=== PATIENT | female | born 1960 | race Caucasian/White ===

== ENCOUNTER → 2018-07-23 07:50 | Outpatient (CLI) | payer OTHER, MEDICAID, SELFPAY | PROVIDERS: Family Provider Nurse Practitioner; PCP Nurse Practitioner; Visit Provider Nurse Practitioner | DX: R60.0 Localized edema (principal) ==

== ENCOUNTER → 2018-07-24 07:39 | Outpatient (CLI) | payer OTHER, MEDICAID, SELFPAY ==
--- NOTE | 2018-07-24 | DI.MRI.S_ITS ---
PROCEDURE: MR LOWER LEG LT WO/W CON INDICATIONS: LEFT LEG WEAKNESS/EDEMA TECHNIQUE: Noncontrast coronal T1 spin echo and STIR, sagittal T1 spin echo with fat saturation and STIR, axial T1 spin echo and T2 fast spin echo with fat saturation. After the administration of contrast, axial/sagittal/coronal T1 spin echo with fat saturation through the left lower leg. COMPARISON: [facility], MR, MR KNEE LT WO/W CON, 07/24/2018, 8:14. [facility] [place], CR, XR KNEE ARTHRITIC SERIES LT, 03/28/2018, 13:51. [facility], CR, XR KNEE 3 VIEWS LEFT, 12/10/2016, 17:35. FINDINGS: Image quality: Diagnostic. Bones: There is no acute fracture or dislocation identified involving the osseous structures of the left lower leg. However, there is heterogeneous signal identified (demonstrating mild increased signal intensity on the fluid sensitive sequences and intermediate to decreased signal intensity on the T1 images and of mild patchy postcontrast enhancement) is identified involving the imaged portions of the distal femoral diametaphysis, proximal tibial diametaphysis, and proximal fibular diametaphysis. An identical pattern is identified involving the imaged portions of the right lower leg. No additional areas of abnormal marrow signal are seen involving the distal margins of the left tibia or fibula or the included portions of the ankle bones. No significant tibiotalar joint effusion is present. There is a small knee joint effusion. Soft tissues: There is mild subcutaneous edema about the left lower leg which is predominantly seen anteriorly. No drainable or loculated fluid collections are present. There are no soft tissue masses. There is no significant or asymmetric atrophy identified involving the muscles of the left lower leg. There is heterogeneity identified involving the peroneus brevis and peroneus longus tendons near the level of the ankle, which is not well evaluated, but suspicious for mild tendinopathy. Please note that the ankle ligaments are not adequately evaluated on this exam. As mentioned on the MRI of the knee, there is mild distal patellar tendinopathy and a small knee joint effusion. Degenerative changes of the knee are again noted. The Achilles tendon appears to be intact and otherwise unremarkable. IMPRESSION: 1. Heterogeneous marrow signal involving the distal left femur, proximal tibia, and proximal left fibula is symmetric when compared to the contralateral right lower extremity and most suggestive of red marrow reconversion. Diffuse marrow metastases are felt to be unlikely. If the patient has a history of cancer, a nuclear medicine bone scan may be helpful for better evaluation. Otherwise, followup MR imaging of the left lower leg and 6-12 months may be helpful to assess for interval change. 2. Mild subcutaneous edema about the left lower leg without a focal fluid collection. Some of this edema is positioned anterior to the tibia. Please correlate clinically to exclude the possibility of dunn splints. 3. No soft tissue masses. 4. Possible mild peroneus longus and peroneus brevis tendinopathy. Dictated by: Bear Douglas M.D. on 07/24/2018 at 9:11 Approved by: Bear Douglas M.D. on 07/24/2018 at 9:20
--- NOTE | 2018-07-24 | DI.MRI.S_ITS ---
PROCEDURE: MR KNEE LT WO/W CON INDICATIONS: LEFT LEG WEAKNESS/EDEMA TECHNIQUE: Noncontrast sagittal PD fast spin echo and T2 fast spin echo with fat saturation, sagittal 3-D FLASH with fat saturation; coronal T1 spin echo and PD fast spin echo with fat saturation, and axial T1 spin echo and PD fast spin echo with fat saturation through the knee. Post-contrast axial, coronal, and sagittal T1 spin echo with fat saturation through the knee. COMPARISON: [facility], MR, MR LOWER LEG LT WO/W CON, 07/24/2018, 8:40. [facility] [place], CR, XR KNEE ARTHRITIC SERIES LT, 03/28/2018, 13:51. [facility], CR, XR KNEE 3 VIEWS LEFT, 12/10/2016, 17:35. FINDINGS: Image quality: Diagnostic. Bones: There is no acute fracture or dislocation identified involving the osseous structures of the right knee. No definable bone lesions are identified. Heterogeneous marrow signal with areas of increased signal on the fluid sensitive sequences and intermediate to decreased signal intensity on the T1 images is identified involving the distal femoral diametaphysis comment proximal tibial diametaphysis, and proximal fibular diametaphysis. No periosteal elevation is identified. These areas of heterogeneous marrow signal correlate with subtle areas of enhancement on the postcontrast images. There are moderate degenerative changes identified within all 3 compartments of the knee, which are most pronounced within the lateral tibiofemoral compartment with extensive chondromalacia and developing marginal osteophytes. Reactive marrow changes may be present involving the lateral tibial plateau. Mild irregularity of the head articular cartilage within the other 2 compartments of the knee are present. There likely are full thickness defects of the hyaline articular cartilage within the patellofemoral compartment. There is a small knee joint effusion. There may be intra-articular joint bodies. Soft tissues: Mild subcutaneous edema is present about the knee. No drainable or loculated fluid collections are evident. No soft tissue masses or suspicious soft tissue enhancement is appreciated. There is a complex tear identified involving the lateral meniscus which is not well characterized on this examination, but demonstrates fraying along the free edge of the body of the meniscus and degenerative signal along the midsubstance of the anterior horn and body. There may be a horizontal tear through the anterior horn and body of the lateral meniscus. The medial meniscus appears to be intact and is otherwise unremarkable. The anterior and posterior cruciate ligaments are intact. The medial and lateral collateral ligaments appear intact. The distal semimembranosus tendon appears to be within normal limits, but is not well seen. The distal iliotibial band, distal biceps femoris, and the proximal popliteal tendon are within normal limits. The distal quadriceps tendon and the patellar tendons are noted to be intact. There is increased signal and thickening identified involving the distal aspect of the patellar tendon without significant tearing evident. IMPRESSION: 1. Heterogeneous marrow signal and corresponding enhancement involving the distal femur, proximal tibia, and proximal fibula most likely represents red marrow reconversion. No definable mass is identified. The possibility of heterogeneous diffuse marrow metastases is felt to be unlikely. If the patient has a history of cancer, a bone scan may be helpful for better evaluation. Otherwise, followup MR imaging in 6-12 months would be of value to assess for interval change. 2. Moderate degenerative changes of the knee are most pronounced within the lateral compartment. 3. Mild complex tearing of the lateral meniscus. No displaced fragments. 4. Small knee joint effusion. 5. Mild distall patellar tendinopathy. 6. Mild subcutaneous edema about the knee. No drainable fluid collections or soft tissue masses. Dictated by: Bear Douglas M.D. on 07/24/2018 at 8:42 Approved by: Bear Douglas M.D. on 07/24/2018 at 9:10
== END ==
PROVIDERS: Family Provider Nurse Practitioner; PCP Nurse Practitioner; Visit Provider Nurse Practitioner
DX: S83.272A Complex tear of lateral meniscus, current injury, left knee, initial encounter (principal); M17.12 Unilateral primary osteoarthritis, left knee; R60.0 Localized edema; M25.462 Effusion, left knee
CPT/HCPCS: 73720; 73723

== ENCOUNTER 2022-03-29 08:42 | Emergency (ER) | payer OTHER, MEDICAID, SELFPAY ==
[2022-03-29] VITALS (12 sets, daily range): BP systolic 134–180; BP diastolic 78–87; PULSE 80–118; RESP 18–32; TEMP 36.9–37; O2SAT 90–98; BMI 29.7
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
[2022-03-29 09:50] LABS: Add Manual Diff / Slide Review NO; Basophils Absolute Auto 0 /uL (0-100); Basophils Percent Auto 0.2 % (0-2); Eosinophils Absolute Auto 0 /uL (0-450); Eosinophils Percent Auto 0.2 % (2-4); Hemoglobin 15.6 g/dL (12.0-16.0); Lymphocytes Absolute Auto 1100 /uL (1100-4500); Lymphocytes Percent Auto 10.7 % (25-40); Mean Corpuscular HGB Conc 33.1 % (30-36); Mean Corpuscular Hemoglobin 31.7 PG (26-34); Mean Corpuscular Volume 95.8 fL (80-100); Monocytes Absolute Auto 500 /uL (0-900); Monocytes Percent Auto 4.7 % (3-14); Neutrophils Absolute Auto 8700 /uL (1500-7000); Neutrophils Percent Auto 84.2 % (50-75); Platelet Count 229 X10^3/uL (150-400); Red Blood Cell Count 4.91 X10^6/uL (4.0-5.2); Red Cell Distribution Width 15.2 % (11.6-14.8); White Blood Cell Count 10.3 X10^3/uL (4.5-11.0)
[2022-03-29 10:03] LABS: Alanine Aminotransferase 39 IU/L (<35); Albumin 4.5 g/dL (3.5-5.0); Albumin Globulin Ratio 1.3 (1.0-2.8); Alkaline Phosphatase 102 U/L (38-126); Aspartate Aminotransferase 39 IU/L (14-36); BUN Creatinine Ratio 12.8 (6-22); Bilirubin Total 0.4 mg/dL (0.2-1.3); Blood Urea Nitrogen 11 mg/dL (7-17); Calcium 9.1 mg/dL (8.4-10.2); Carbon Dioxide 23 mmol/L (22-32); Chloride 110 mmol/L (98-107); Estimated Glomerular Filt Rate > 60 mL/min (>60); Ethanol (ETOH) 143 mg/dL; Globulin 3.5 g/dL (1.7-4.1); Glucose 111 mg/dL (70-100); HEMOLYSIS 17 (0-50); Potassium 4.1 mmol/L (3.4-5.1); Sodium 147 mmol/L (137-145)
[2022-03-29] MEDS: KETOROLAC 30 MG/ML VIAL IM (10:34)
[2022-03-29 10:37] LABS: Appearance Urine UA CLEAR; Bilirubin Urine UA NEGATIVE (NEGATIVE); Color Urine UA YELLOW; Glucose Urine UA TRACE g/dL (Negative); Ketones Urine UA TRACE (NEGATIVE); Leukocyte Esterase Urine UA NEGATIVE (NEGATIVE); Nitrite Urine UA NEGATIVE (Negative); Occult Blood Urine UA TRACE-LYSED (Negative); Protein Urine UA TRACE (Negative); Specific Gravity Urine UA 1.025 (1.000-1.035); Urobilinogen Urine UA 0.2 E.U./dL (0.2)
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
[2022-03-29 10:42] LABS: UR Morphine/Opiate cutoff 300 Negative (Negative); Ur Creatinine Normal (Normal); Ur Specific Gravity Normal (Normal); Urine Amphetamines Negative (Negative); Urine Barbiturates Negative (Negative); Urine Benzodiazepines Negative (Negative); Urine Cocaine Negative (Negative); Urine MDMA Negative (Negative); Urine Methadone Negative (Negative); Urine Methamphetamines Negative (Negative); Urine Oxycodone Negative (Negative); Urine Phencyclidine Negative (Negative); Urine Tetrahydrocannabinol Negative (Negative); Urine Tricyclic Antidepressant Negative (Negative); Urine pH Normal (Normal)
[2022-03-29 10:46] LABS: Amorphous Sediment Urine 2+; Bacteria Urine None Seen; Culture Indicated Urine Cult Not Indicated; Granular Casts Urine 0-1/LPF; Hyaline Casts Urine 0-1/LPF; Mucus Urine 1+ (Negative); RBC Urine None Seen (0-5/HPF); Squamous Epithelial Cell Urine 1-5 /HPF (0-5/HPF); WBC Urine None Seen (0-5/HPF)
--- NOTE | 2022-03-29 12:04 | PC.NURSE ---
pt is wheezing and requesting Albuterol treatment. pt takes Albuterol as needed.
[2022-03-29 12:06] LABS: Urine N gonorrhoeae NOT DETECTED
[2022-03-29 12:08] LABS: Urine Chlamydia NOT DETECTED
[2022-03-29] MEDS: ALBUTEROL/IPRATROPIUM 3 ML AMPUL INH (12:19)
[2022-03-29] MEDS: ALBUTEROL HFA PREPACK 1 BOX MISC (12:19)
[2022-03-29] MEDS: ACETAMINOPHEN 325 MG TABLET 975 MG PO (12:26)
[2022-03-29] MEDS: DULOXETINE 30 MG CAPSULE 90 MG PO (12:32)
[2022-03-29] MEDS: QUETIAPINE 25 MG TABLET 100 MG PO (12:32)
--- NOTE | 2022-03-29 13:35 | PC.NURSE ---
Officer Shay here to speak to pt.
--- NOTE | 2022-03-29 14:20 | PC.NURSE ---
sergeant mitzi armendariz spoke with patient. he states he is going to do a full interview with patient tomorrow. Case # [id number]. given card to reach him if need be. dispatch number [phone]. desk number [phone]. fax number [phone]
[2022-03-29 19:30] LABS: Pregnancy Test Urine Negative (Negative)
--- NOTE | 2022-03-29 20:25 | PC.NURSE ---
XOCHILTE exam performed by this PEANUT SEPARATOR. All evidence collected, labs sent, physician advised. Pt tolerated procedure well.
[2022-03-29 20:59] LABS: HIV 1 & 2 Ab/Ag 4th Gen Combo NEGATIVE (NEGATIVE)
== END 2022-03-29 20:28 | disposition home or self-care (01) ==
PROVIDERS: Emergency Medicine; Emergency Provider Emergency Medicine; Family Provider Nurse Practitioner; PCP Nurse Practitioner Family
DX: T74.21XA Adult sexual abuse, confirmed, initial encounter (principal); S00.83XA Contusion of other part of head, initial encounter; R00.0 Tachycardia, unspecified
CPT/HCPCS: 36415; 80053; 80305; 80320; 81001; 81025; 85025; 87070; 87147; 87186; 87205; 87210; 87389; 87491; 87591; 96372; 99284; J1885

== ENCOUNTER → 2022-11-08 09:40 | Outpatient (CLI) | payer OTHER, MEDICAID, SELFPAY | PROVIDERS: Family Provider Nurse Practitioner; PCP Nurse Practitioner Family; Referring Provider Nurse Practitioner Family; Visit Provider Nurse Practitioner Family | DX: M54.12 Radiculopathy, cervical region (principal) | CPT/HCPCS: 95886; 95912 ==

== ENCOUNTER → 2023-01-01 18:09 | Outpatient (CLI) | payer OTHER, MEDICAID, SELFPAY ==
--- NOTE | 2023-01-01 | DI.MRI.S_ITS ---
PROCEDURE: MR LOWER LEG LT WO/W CON INDICATIONS: Disease of blood and blood forming organs TECHNIQUE: Noncontrast coronal T1 spin echo and STIR, sagittal T1 spin echo with fat saturation and STIR, axial T1 spin echo and T2 fast spin echo with fat saturation. After the administration of contrast, axial/sagittal/coronal T1 spin echo with fat saturation through the left lower leg. COMPARISON: [facility], MR, MR LOWER LEG LT WO/W CON, 07/24/2018, 8:40. FINDINGS: Image quality: Excellent. Bones: Compared to previous study, again noted are ill-defined area of mildly T2 hyperintense marrow signal within medullary space of included distal femur, proximal and distal tibial shaft without associated cortical erosion or abnormal periosteal reaction. Similar changes also noted in visualized portion of right distal femur and tibial shaft. No abnormal intraosseous enhancement. No fracture or dislocation is seen. Osteoarthritic changes are noted in left knee and ankle joints. Soft tissues: No soft tissue masses are visualized. The scanned muscles demonstrate normal overall bulk and internal signal. Subcutaneous tissues appear normal as well. No abnormal soft tissue enhancement. IMPRESSION: 1. Stable and benign-appearing T2 hyperintense marrow signal within medullary space of included bilateral lower extremities and show no area of abnormal enhancement most consistent with hematopoietic marrow reconversion. Given its stability over the course of last 4 years, infiltrative marrow process is highly unlikely. 2. No enhancing soft tissue mass. No lower leg muscle or tendon signal abnormalities. Dictated by: Nabil Warner M.D. on 01/02/2023 at 10:32 Approved by: Nabil Warner M.D. on 01/02/2023 at 10:49
== END ==
PROVIDERS: Family Provider Nurse Practitioner; PCP Nurse Practitioner Family; Referring Provider Nurse Practitioner Family; Visit Provider Nurse Practitioner Family
DX: D75.9 Disease of blood and blood-forming organs, unspecified (principal)
CPT/HCPCS: 73720; A9579

== ENCOUNTER → 2023-04-04 08:09 | Outpatient (CLI) | payer OTHER, MEDICAID, SELFPAY ==
--- NOTE | 2023-04-04 | DI.US.S_ITS ---
PROCEDURE: US ARTERIAL DUPLEX LE LT INDICATIONS: EDEMA TECHNIQUE: Color and pulse Doppler interrogation was performed of the left lower extremity arterial system, with image documentation. COMPARISON: None. FINDINGS: Common femoral artery: 95 cm/sec, with triphasic flow. Deep femoral artery: 49 cm/sec, with triphasic flow. Proximal superficial femoral artery: 105 cm/sec, with triphasic flow. Mid superficial femoral artery: 104 cm/sec, with triphasic flow. Distal superficial femoral artery: 61 cm/sec, with triphasic flow. Popliteal artery: 58 cm/sec, with try phase flow. Posterior tibial artery: 85 cm/sec, with triphasic flow. Anterior tibial artery/dorsalis pedis: 49 cm/sec, with biphasic flow. Shelley-scale imaging description: Negative IMPRESSION: No evidence of arterial insufficiency to the left lower extremity Dictated by: Kaylah Zavala M.D. on 04/04/2023 at 15:26 Approved by: Kaylah Zavlaa M.D. on 04/04/2023 at 15:27
== END ==
PROVIDERS: Family Provider Nurse Practitioner; PCP Nurse Practitioner Family; Referring Provider Nurse Practitioner Family; Visit Provider Nurse Practitioner Family
DX: R60.9 Edema, unspecified (principal)
CPT/HCPCS: 93926

== ENCOUNTER → 2023-07-07 08:29 | Outpatient (CLI) | payer MEDICARE, MEDICAID, SELFPAY ==
--- NOTE | 2023-07-07 08:32 | DI.MRI.S_ITS ---
PROCEDURE: MR CERVICAL SPINE WO CON INDICATIONS: Spondylosis , cervical region TECHNIQUE: Noncontrast sagittal T1 spin echo and T2 fast spin echo, sagittal STIR, foraminal oblique sagittal T2 fast spin echo, and axial gradient echo or T2 fast spin echo through the cervical spine. COMPARISON: [facility], CT, C-SPINE WITHOUT CONTRAST, 08/16/2012, 1:39. [facility], CR, XR CERVICAL SPINE 2 OR 3 VIEWS, 09/06/2022, 13:12. FINDINGS: Image quality: Excellent. Alignment and Curvature: Trace anterolisthesis of C4 on C5 and C5 on C6 and C6 on C7. Bone Marrow: Marrow demonstrates normal overall signal. Spinal Cord: Visualized spinal cord has normal size and signal. No cerebellar tonsillar herniation. Paraspinous Soft Tissues: No paravertebral masses. Prevertebral soft tissues are normal in thickness. C2-C3: Left facet hypertrophy. No canal stenosis. Mild left foraminal stenosis. C3-C4: Prominent bilateral facet hypertrophy. Disc bulge. No central canal stenosis. Prominent left uncovertebral joint hypertrophy. Moderate right foraminal narrowing. Severe left foraminal narrowing with left foraminal C4 nerve root impingement. C4-C5: No canal stenosis. Exuberant left facet hypertrophy. Left uncovertebral joint hypertrophy. Moderate left foraminal narrowing. C5-C6: Trace anterolisthesis of C5 on C6. Diffuse disc bulge with mild superimposed left paracentral disc protrusion. There is moderate central canal stenosis and moderate to severe stenosis of the left side of the canal. Reference axial T2 image 27 of series 4. There is bilateral uncovertebral joint hypertrophy. There is prominent left facet hypertrophy. There is mild right foraminal narrowing and moderate to severe left foraminal narrowing with a degree of left foraminal C6 nerve root impingement. C6-C7: Disc bulge. AP diameter of the central canal is 9.9 mm. Bilateral facet joint hypertrophy. No right-sided foraminal narrowing. Mild to moderate left foraminal narrowing. C7-T1: No canal stenosis or significant foraminal stenosis. IMPRESSION: 1. There is underlying multilevel facet arthropathy. Facet hypertrophy is prominent on multiple levels on the left. 2. At C5-C6, there is moderate central canal stenosis. There is a left paracentral disc protrusion superimposed on disc bulge which results in moderate to severe stenosis of the left side of the canal. 4. There is borderline canal stenosis at C7-T1. 5. Multilevel foraminal narrowing as described above. Findings include severe left foraminal narrowing at C3-C4 and moderate to severe left foraminal narrowing at C5-C6. Dictated by: Nando Yan M.D. on 07/08/2023 at 10:54 Approved by: Nando Yan M.D. on 07/08/2023 at 11:30
== END ==
PROVIDERS: Family Provider Nurse Practitioner; PCP Nurse Practitioner Family; Referring Provider Physical Medicine & Rehabilitation; Visit Provider Physical Medicine & Rehabilitation
DX: M47.812 Spondylosis without myelopathy or radiculopathy, cervical region (principal); M50.222 Other cervical disc displacement at C5-C6 level; M48.02 Spinal stenosis, cervical region
CPT/HCPCS: 72141